=== PATIENT | male | born 1940 | race Caucasian/White ===

== ENCOUNTER 2017-01-13 19:41 | Inpatient (IN) | payer MEDICARE ==
[2017-01-13 20:01] LABS: VENOUS BLOOD GAS BASE EXCESS 2.2 mmol/L (-2.0-2.0); VENOUS BLOOD GAS HCO3 28.8 mmol/L (22.0-27.0)
[2017-01-13] MEDS ORDERED: ONDANSETRON 4 MG/2ML 2 ML VIAL ONE (20:05)
[2017-01-13 20:09] LABS: ABSOLUTE NEUTROPHIL COUNT 7.2 K/mm3 (1.8-7.7); BASO % 0.5 % (0.2-1.0); HEMATOCRIT 35.9 % (32.0-52.0); HEMOGLOBIN 12.2 gm/l (14.0-18.0); IMM NEUT # 0.1 K/mm3 (0-0.2); LYMPH # 0.1 (1.0-4.8); LYMPH % 1.4 % (15-45); MEAN CELL VOLUME 100.8 fl (80.0-94.0); MEAN CORPUSCULAR HEMOGLOBIN 34.3 pg (27.0-31.0); MEAN PLATELET VOLUME 10.2 fl (7.4-10.4); MONO # 0.6 (0.0-0.8); MONO % 7.7 % (4-12); NEUT % 89.4 % (43-75); PLATELET COUNT 226 K/mm3 (130-400); RED CELL DISTRIBUTION WIDTH 13.1 % (11.5-14.5)
[2017-01-13] MEDS ORDERED: ACETAMINOPHEN 500 MG TABLET ONE (20:12)
[2017-01-13] MEDS ORDERED: SODIUM CHLORIDE 0.9% 500 ML ONE (20:12)
[2017-01-13 20:34] LABS: ALB/GLOB RATIO 1.2 (>1.0); ALBUMIN 3.7 gm/dL (3.5-5.7); CALCIUM 9.3 mg/dL (8.6-10.3); MAGNESIUM 0.8 mg/dL (1.9-2.7)
[2017-01-13] MEDS ORDERED: Potassium Chloride ORAL SOLN 20 MEQ/15 ML UDCUP ONE (20:40)
[2017-01-13] MEDS ORDERED: Magnesium Oxide 400 MG TABLET ONE (20:40)
[2017-01-13] MEDS ORDERED: MAGNESIUM SULFATE 1 G/100 ML 100 ML IV ONE (20:40)
--- NOTE | 2017-01-13 20:53 | RAD ---
01/13/2017 8:49 PM CHEST-AP BEDSIDE History: Shortness of breath and hypoxemia. Comparison: 05/15/2016 Findings: Single AP view of the chest is obtained. The lungs demonstrate patchy airspace disease in the left midlung. Eventration of the right hemidiaphragm is again identified. EKG leads overlie the chest. The cardiomediastinal silhouette is unremarkable.. The osseous structures are intact.. Median sternotomy wires are present. IMPRESSION: Patchy airspace disease in the left midlung worrisome for pneumonia.
[2017-01-13] MEDS ORDERED: LIDOCAINE 2% UROJECT 10 ML ONE (20:59)
[2017-01-13] MEDS ORDERED: LEVOFLOXACIN 500 MG/D5W 100 ML 100 ML IV ONE (21:00)
[2017-01-13 21:07] LABS: D-DIMER 1.19 mg/L FEU (0.20-0.50); INR 1.15; PROTHROMBIN TIME 12.2 SECONDS (9.3-11.4)
[2017-01-13 21:41] LABS: URINE BILIRUBIN NEGATIVE (NEGATIVE); URINE BLOOD NEGATIVE (NEGATIVE); URINE GLUCOSE (UA) NEGATIVE (NEGATIVE); URINE LEUKOCYTE ESTERASE NEGATIVE (NEGATIVE); URINE NITRITE NEGATIVE (NEGATIVE); URINE PROTEIN NEGATIVE (NEGATIVE); URINE UROBILINOGEN NORMAL (0-1 mg/dl)
[2017-01-13 21:51] VITALS: BMI 32.1
[2017-01-13 21:54] LABS: URINE APPEARANCE CLEAR; URINE COLOR YELLOW
[2017-01-13] MEDS ORDERED: ONDANSETRON 4 MG/2ML 2 ML VIAL IV PRN (22:27)
[2017-01-13 22:48] LABS: TOTAL CELLS COUNTED 100
[2017-01-13 22:49] LABS: BAND 24 % (0-10); BASOPHIL 0 % (0-1); EOSINOPHIL 0 % (1-3); LYMPHOCYTE 9 % (15-45); METAMYELOCYTE 11 %; MONOCYTE 6 % (4-12); NEUTROPHILS 50 % (43-75); ORDER PATH REVIEW YES; PLATELET ESTIMATE NORMAL (NORMAL)
[2017-01-13] MEDS ORDERED: MAGNESIUM SULFATE 2 G/50 ML 2 G in Premix (Water) 50 ml 1 EACH IV ONE ×2 (23:00→23:30)
[2017-01-13] MEDS ORDERED: PUMP TUBING ONE (23:01)
[2017-01-13] MEDS ORDERED: SODIUM CHLORIDE 0.9% 100 ML IV ONE (23:01)
[2017-01-13] MEDS ORDERED: SODIUM CHLORIDE 0.9% 100 ML IV PRN (23:09)
[2017-01-13] MEDS ORDERED: MENTHOL/CETYLPYRD 1 EACH LOZENGE PO PRN (23:09)
[2017-01-13] MEDS ORDERED: BLISTEX LIPSTICK 1 EACH TP PRN (23:09)
[2017-01-13] MEDS ORDERED: MAGNESIUM HYDROXIDE 30 ML UDCUP PO PRN (23:09)
[2017-01-13] MEDS: Cefepime HCl 2 G in NS 0.9% (MINI-BAG PLUS) 50 ML IV SCH (23:14)
[2017-01-13] MEDS ORDERED: INSULIN GLARGINE (DOSE) 100 UNITS/ML UNIT SUB-Q SCH (23:15)
[2017-01-13] MEDS ORDERED: ENOXAPARIN SODIUM 40 MG/0.4 ML SYRINGE SUB-Q SCH (23:15)
[2017-01-13] MEDS ORDERED: FUROSEMIDE 100 MG/10 ML VIAL IV ONE (23:26)
[2017-01-13] MEDS: CARVEDILOL 6.25 MG TABLET PO SCH (23:52)
[2017-01-14] MEDS: COLCHICINE 0.6 MG TABLET PO SCH ×2 (00:12→09:01)
[2017-01-14] MEDS: ACYCLOVIR 400 MG TABLET PO SCH ×2 (00:17→09:01)
[2017-01-14] MEDS ORDERED: LOVASTATIN 20 MG TABLET PO SCH (00:30)
[2017-01-14] MEDS ORDERED: INSULIN ASPART (DOSE) 100 UNITS/1 ML SUB-Q PRN (00:30)
[2017-01-14] MEDS ORDERED: LATANOPROST 0.005% 50 GTTS/2.5 ML BOT SOLN.DROP OU SCH (00:30)
[2017-01-14] MEDS: LORAZEPAM 1 MG TABLET PO PRN ×2 (01:50→07:50)
[2017-01-14] MEDS: ACETAMINOPHEN 325 MG TABLET PO PRN ×2 (02:15→07:50)
[2017-01-14 06:07] LABS: ABSOLUTE NEUTROPHIL COUNT 1.7 K/mm3 (1.8-7.7); BASO % 0.9 % (0.2-1.0); HEMATOCRIT 34.5 % (32.0-52.0); HEMOGLOBIN 11.6 gm/l (14.0-18.0); IMM NEUT # 0.2 K/mm3 (0-0.2); LYMPH # 0.1 (1.0-4.8); LYMPH % 3.6 % (15-45); MEAN CELL VOLUME 100.6 fl (80.0-94.0); MEAN CORPUSCULAR HEMOGLOBIN 33.8 pg (27.0-31.0); MEAN CORPUSCULAR HGB CONC 33.6 g/dl (33.0-37.0); MEAN PLATELET VOLUME 10.4 fl (7.4-10.4); MONO # 0.2 (0.0-0.8); MONO % 6.8 % (4-12); NEUT % 78.7 % (43-75); PLATELET COUNT 185 K/mm3 (130-400)
[2017-01-14 06:20] LABS: CALCIUM 8.7 mg/dL (8.6-10.3); MAGNESIUM 1.5 mg/dL (1.9-2.7)
[2017-01-14] MEDS: Cefepime HCl 2 G in NS 0.9% (MINI-BAG PLUS) 50 ML IV SCH (07:21)
[2017-01-14 07:45] LABS: ATYPICAL LYMPHOCYTE 3 %; BAND 12 % (0-10); BASOPHIL 0 % (0-1); EOSINOPHIL 0 % (1-3); LYMPHOCYTE 17 % (15-45); METAMYELOCYTE 14 %; MONOCYTE 11 % (4-12); NEUTROPHILS 43 % (43-75); PLATELET ESTIMATE NORMAL (NORMAL); TOTAL CELLS COUNTED 100
[2017-01-14] MEDS ORDERED: SODIUM CHLORIDE 0.9% 500 ML IV SCH ×3 (08:11→11:30)
[2017-01-14] MEDS ORDERED: SODIUM CHLORIDE 0.9% 500 ML ONE (08:19)
[2017-01-14] MEDS ORDERED: POTASSIUM CHLORIDE 20 MEQ TAB.PRT.SR PO SCH (09:00)
[2017-01-14] MEDS ORDERED: ASPIRIN (ENTERIC COATED) 325 MG TABLET.EC PO SCH (09:00)
[2017-01-14] MEDS ORDERED: PANTOPRAZOLE 40 MG TABLET DR PO SCH (09:00)
[2017-01-14] MEDS ORDERED: FUROSEMIDE 40 MG TABLET PO SCH (09:00)
[2017-01-14] MEDS ORDERED: CITALOPRAM HYDROBROMIDE 10 MG TABLET PO SCH (09:00)
[2017-01-14] MEDS ORDERED: ALLOPURINOL 100 MG TABLET PO SCH (09:00)
[2017-01-14] MEDS: INSULIN ASPART (DOSE) 100 UNITS/1 ML SUB-Q SCH ×2 (09:01→17:02)
[2017-01-14] MEDS: CARVEDILOL 6.25 MG TABLET PO SCH (09:02)
--- NOTE | 2017-01-14 09:06 | HP ---
Kenji Collins [id number] : 1940 DATE OF ADMISSION: 01/13/2017 IDENTIFICATION: Mr. Collins is a 76-year-old followed by Dr. Abdi. CHIEF COMPLAINT: Shortness of breath. HISTORYO F PRESENT ILLNESS: Mr. 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 Notably, yesterday he was seen at Dr. Andrade's office for chemotherapy with rituximab, Benadryl, and prednisone for lymphoma. Today he woke up with some hoarseness and increased dyspnea. He felt tired. He has a home pulse ox and noted that his oxygen saturation was low in the 80's. He did not have any fever or chills, but has had nonproductive cough. He felt a cramp in the left side of his chest. Eventually his called Dr. Abdi who advised her to take him to the emergency room and then his dyspnea got even worse. Paramedics were called and placed him on BiPAP and brought him into [facility] Emergency Room. Workup shows atrial fibrillation with tachycardia, acute congestive heart failure, and acute left sided pneumonia. He was treated with levofloxacin in the emergency department and referred to the hospitalist service. He was still requiring BiPAP respiratory support in the emergency department. REVIEW OF SYSTEMS: HEENT: He denies faintness or lightheadedness. He has had hoarseness today. Respiratory: Cough, nonproductive, but increased dyspnea. Cardiac: Denies palpitations. He has had a left chest cramp. Gastrointestinal: He has had nausea and vomiting. Denies reflux. Has had some chronic diarrhea. No hematochezia or melena. Genitourinary: No symptoms. Musculoskeletal: Gout pains in his ankles and sciatica. Constitutional: He did not note fever or chills, but his thinks that he may have lost 7 pounds in the last 2 to 3 weeks. PAST MEDICAL HISTORY: 1. Waldenstrom macroglobulinemia diagnosed in June 2009. He was treated with Cytoxan and Rituxan in 2010. I believe he was in remission and then relapsed and is currently undergoing treatment again managed by Dr. Andrade. 2. 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 3. Paroxysmal atrial fibrillation. He and his did not seem aware that he has this condition, but we have EKG's from November 2011 and May 2016 showing previous episodes of atrial fibrillation. 4. Obstructive sleep apnea treated with CPAP and supplemental oxygen at night equating to chronic respiratory failure. 5. Diabetes mellitus type 2 dependent on [facility] insulin use. 6. 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 He has had episodes of acute renal failure as well. 7. Chronic diarrhea, which he relates to colchicine treatment. 8. Chronic anemia related to his lymphoma and chronic kidney disease. 9. Obesity with body mass index of 32.1. 10. Chronic depression and anxiety. 11. Alcoholism. He has been abstinent from alcohol since January 02, that is 11 days, but denies having withdraw symptoms. Prior to that he was drinking a pint a day of hard liquor. 12. Glaucoma. 13. Dyslipidemia. PAST SURGICAL HISTORY: 1. Pericardial window in November 2011. 2. Pericardiectomy in January 2012. 3. Cardiac ablation of his atrial fibrillation focus in 2011. 4. Bone marrow biopsy. 5. Colonoscopy in November 2002. 6. Bilateral cataract surgeries. 7. Both left and right heart catheterizations in 2011. ALLERGIES: No known medication allergies. HE DOES REPORT AN ALLERGY TO BRAZIL NUTS. MEDICATIONS: 1. Carvedilol 6.25 mg by mouth twice daily. 2. Furosemide 80 mg by mouth twice daily. 3. Restasis 1 drop in each eye twice daily. 4. Aspirin 325 mg by mouth daily. 5. Allopurinol 200 mg by mouth daily. 6. Potassium chloride 20 mEq by mouth daily. 7. Humalog sliding scale with meals. 8. Levemir insulin 25 units subcutaneously at bedtime. 9. Lorazepam 1 mg by mouth three times daily. 10. Lovastatin 10 mg by mouth nightly. 11. Xalatan eye drops one in each eye at bedtime. 12. Zovirax 800 mg by mouth twice daily that is preventative along with his chemotherapy treatment. 13. Citalopram 10 mg by mouth daily. 14. Vitamin D3 one daily. 15. Colchicine 0.6 mg by mouth twice daily. 16. Ibuprofen 600 mg by mouth three times daily. 17. Ondansetron as needed for nausea. 18. Currently receiving chemotherapy. The regimen includes rituximab, Benadryl, and prednisone and he did have that combination yesterday January 12. HABITS: Remote smoking history, but quit 50 years ago. Heavy alcohol use, quit 11 days ago. SOCIAL HISTORY: He is a retired pharmacist. Lives with his and pet cat in [place]. ADVANCE DIRECTIVE: Was discussed, he does not want to be intubated and placed on mechanical ventilation. He barely tolerates the BiPAP. He would like an attempt at cardiopulmonary resuscitation if there is a witnessed arrest, but only for 3 or 4 minutes and if there is an unwitnessed arrest he does not want CPR attempted. FAMILY HISTORY: Hypertension and stroke on his father side. His father also had lymphoma, but a different type than the patient's. PHYSICAL EXAMINATION: GENERAL: This is a diaphoretic elderly gentleman in moderate respiratory distress. VITAL SIGNS: Temperature 98 degrees Fahrenheit, pulse 115, blood pressure 115/74, respiratory rate 30, oxygen saturation low 80's on nasal cannula oxygen in the 96 to 98 range when he is wearing the BiPAP mask with 80% delivered oxygen. HEENT: Atraumatic. Pupils equal, round, and reactive status post cataract surgery. Extraocular muscles intact. Oropharynx is moist. NECK: No jugular venous distention or bruits appreciated. CHEST: Poor air movement. No wheezes, rhonchi, or crackles appreciated. HEART: Rapid and irregular. ABDOMEN: Soft, nontender, hypoactive bowel sounds. No organomegaly. EXTREMITIES: Decreased, but palpable dorsalis pedis pulses. No cyanosis, clubbing, or edema. NEUROLOGIC: Patient is alert and oriented. No focal deficits. LABORATORIES: White blood cell count 8.0, hemoglobin and hematocrit 12.2 and 35.9, platelets 226. Band neutrophils 24%. INR is 1.15. D-dimer 1.19. Venous blood gas pH 7.349, pCO2 53.5, pO2 26.9, bicarb 28.8, lactate 2.0. Sodium 137, potassium 3.5, chloride 97, CO2 28, BUN 38, creatinine 1.4 up from a baseline of 1.1, glucose 181, magnesium low at 0.8, troponin I 0.03. B-type natiuretic peptide 434. Urinalysis specific gravity of 1.010. Urine chemistries are negative. DIAGNOSTICS: Chest x-ray patchy airspace disease in the left mid lung worrisome for pneumonia, status post median sternotomy. EKG atrial fibrillation with tachycardia. ASSESSMENT AND PLAN: 1. Mr. Collins is a 76-year-old with an acute presumed bacterial pneumonia and severe sepsis. He has immune suppression with lymphoma and chemotherapy therefore, he will be treated with intravenous levofloxacin and cefepime. 2. Paroxysmal atrial fibrillation with tachycardia. This may be triggered by the acute pneumonia. Will try to control his rate with carvedilol. 3. Acute congestive heart failure, probably diastolic, related to pneumonia and tachycardia. Will place him on fluid restriction and provide additional dose of furosemide for diuresis tonight. Plan echocardiogram. 4. Acute on chronic respiratory failure both hypoxemic and hypercapnic. Continue respiratory support with BiPAP and supplemental oxygen as needed. 5. Acute kidney injury on chronic kidney disease stage II. This will need to be followed closely along with his fluid status. Avoid nephrotoxic medications. 6. Acute hypokalemia and hypomagnesemia. We will replace both and follow. 7. Diabetes mellitus type 2 insulin dependent. Treat with basal and bolus insulin and check blood sugars before meals and bedtime. 8. Chronic lymphoma on chemotherapy as he just received treatment yesterday we may anticipate a decrease in his white blood cell count and ability to fight infection over the next week. 9. Chronic anemia appears to be at baseline. 10. Chronic depression and anxiety. Continue usual treatment. 11. Alcoholism in brief recovery. Social work consult to encourage continued abstinence. 12. Obesity complicates care for his pneumonia, heart failure, and diabetes as well as his sleep apnea. 13. Code status is do not intubate and cardiopulmonary resuscitation for witnessed arrest only. 14. Venous thromboembolism prophylaxis with enoxaparin. Consider [facility] warfarin treatment if atrial fibrillation is persistent. JOB: [id number]
[2017-01-14] MEDS ORDERED: LORAZEPAM 2 MG/ML 1ML SDV IV PRN ×2 (10:23→12:31)
[2017-01-14] MEDS ORDERED: SODIUM CHLORIDE 0.9% 1,000 ML IV SCH (10:30)
[2017-01-14] MEDS ORDERED: IV START KIT ONE (10:35)
[2017-01-14 10:46] LABS: ARTERIAL BLOOD GAS pH 7.383 (7.350-7.450)
[2017-01-14 10:47] LABS: ARTERIAL BLOOD GAS BASE EXCESS -5.4 mmol/L (-2.0-2.0); ARTERIAL BLOOD GAS HCO3 18.7 mmol/L (22.0-28.0); ARTERIAL BLOOD GAS PCO2 32.2 mmHg (35.0-45.0); ARTERIAL BLOOD GAS PO2 64.3 mmHg (80.0-90.0)
[2017-01-14] MEDS: NOREPINEPHRINE BITARTRATE 4 MG in D5W 246 ML IV PRN ×2 (10:49→14:10)
--- NOTE | 2017-01-14 10:53 | RAD ---
01/14/2017 10:47 AM CHEST-AP BEDSIDE History: Hypoxia Comparison: Films same back to 08/17/2015 Findings: Single AP view of the chest is obtained. The lungs demonstrate worsening of the patient's left midlung airspace opacity, now extending into the upper and lower lobe distribution. There is streaky linear airspace disease at the left base with some obscuration of the hemidiaphragm worrisome for underlying effusion. Possible patchy airspace disease is noted involving the right middle and lower lobe. The cardiomediastinal silhouette is unremarkable.. The osseous structures are intact.. Eventration of the right hemidiaphragm is again noted. EKG leads overlie the chest. Median sternotomy wires are noted. IMPRESSION: Worsening of the patient's left-sided airspace disease with probable new effusion. Right-sided airspace disease is also present. Findings are worrisome for multifocal pneumonia.
[2017-01-14] MEDS ORDERED: PUMP TUBING ONE ×3 (11:30→13:50)
[2017-01-14] MEDS: SODIUM CHLORIDE 0.9% 1,000 ML IV SCH ×2 (12:38→14:21)
[2017-01-14] MEDS ORDERED: PHENYLEPHRINE 10 MG/1 ML (1%) VIAL ONE (13:17)
[2017-01-14] MEDS ORDERED: SODIUM CHLORIDE 0.9% IV PRN (13:23)
[2017-01-14] MEDS ORDERED: VASOPRESSIN IV PRN (13:23)
[2017-01-14] MEDS ORDERED: PROPOFOL 100 ML IV ONE (13:30)
[2017-01-14] MEDS ORDERED: PROPOFOL 200 MG/20 ML VIAL IV ONE (13:34)
[2017-01-14] MEDS ORDERED: ETOMIDATE IV ONE (13:34)
[2017-01-14 13:38] LABS: CALCIUM 7.8 mg/dL (8.6-10.3)
[2017-01-14] MEDS ORDERED: PROPOFOL 1000 MG/100 ML IV PRN (13:44)
[2017-01-14] MEDS ORDERED: PROPOFOL 100 ML IV PRN (13:50)
--- NOTE | 2017-01-14 14:09 | RAD ---
01/14/2017 2:01 PM CHEST-AP BEDSIDE History: Worsening hypoxia, endotracheal tube placement Comparison: Plain films earlier on the same day Findings: Single AP view of the chest is obtained. The lungs demonstrate worsening of the airspace disease within the left mid, right mid and lower lobes. Bilateral effusions are now present with associated compressive atelectasis. Underlying pneumonia cannot be excluded. Eventration of the right hemidiaphragm as seen on prior study is obscured. The cardiomediastinal silhouette is unremarkable.. The osseous structures are intact.. Median sternotomy wires are present. Endotracheal tube terminates approximately 3.3 cm above the fernanda. IMPRESSION: Endotracheal tube as above. Worsening of the patient's bilateral airspace disease with bilateral effusions as above. Findings were called to Dr. Hung at approximately 1405 hours on 01/13/2017.
[2017-01-14] MEDS ORDERED: NOREPINEPHRINE BITARTRATE 8 MG in D5W 500 ML IV PRN (14:12)
[2017-01-14] MEDS: VANCOMYCIN HCL 2 G in SODIUM CHLORIDE 0.9% 500 ML IV SCH ×2 (14:21→17:02)
--- NOTE | 2017-01-14 14:52 | PDOC43 ---
- Subjective Chief Complaint: SOB Still more SOB than nl. Frequently asking for mask off but overall olerating Bipap. Persistent fever above 101 since last night. Subjective: Reports Fever, Reports Chills, Denies Chest Pain, Denies Abdominal Pain, Denies Nausea, Denies Vomiting - Objective Vital Signs Temperature 101.1 F 01/14/17 11:22 Pulse Rate 93 01/14/17 11:30 Respiratory Rate 30 01/14/17 11:30 Blood Pressure 86/32 01/14/17 11:30 O2 Saturation by Pulse Oximetry 95 01/14/17 11:30 Oxygen Delivery Method Bi-PAP Oxygen Flow Rate 12 Intake and Output 01/13/17 01/14/17 01/15/17 06:59 06:59 06:59 Intake Total 865 400 Output Total 480 85 Balance 385 315 General: Alert, Oriented x3, Cooperative, No Acute Distress HEENT: Atraumatic Lungs: Clear to Auscultation Bilaterally, Other (Distant sounds all fileds B.) Cardiovascular: Irregular Abdomen: Soft, Normal Bowel Sounds, Non-Distended, No Tenderness Extremities: No Edema Peripheral Pulses: Carotid (R): 1+, Radial (L): 1+, Dorsalis Pedis (L): 1+, Dorsalis Pedis (R): 1+ Skin: Other (Pale. Clammy.) Laboratory 01/14/17 05:30 01/14/17 05:30 Current Medications: Current meds reviewed in EMR. - Problems: Assessment/Plan (1) Pneumonia Qualifiers: Pneumonia type: due to unspecified organism Laterality: bilateral Status: AcuteAssessment/Plan: Complicated by underlying lymphoma, recent chemotx, underlying elevated R diaphragm d/t phrenic nerve injury, and underlying ANDREW requiring CPAP and O2 at baseline. With associated septic shock- see below. Tolerating Bipap. On cefepime /levaquin/vanco, and acyclovir. Cx pending. Pt initially stated DNI, but now states intubation OK if necessary. Will d/w pulmonology/critical care. May need transfer. (2) Sepsis Qualifiers: Sepsis type: sepsis due to unspecified organism Qualifier Code: (A41.9 ) Sepsis, unspecified organism Status: AcuteAssessment/Plan: Overnight BP's dropped. Now clinical picture c/w septic shock. Received IVF boluses this AM with transient effect. Now on more aggressive IVF and norepi gtt. Con't aggressive IVF/pressors. Stress dose steroids. May need transfer to tertiary hospital. (3) ELI (acute kidney injury) Status: AcuteAssessment/Plan: Associated with above in context of underlying CKD stage 3. Care as above. Avoid nephrotoxic agents. (4) CHF (congestive heart failure) Qualifiers: Congestive heart failure type: diastolic Congestive heart failure chronicity: unspecified congestive heart failure chronicity Qualifier Code: (I50.30) Unspecified diastolic (congestive) heart failure Status: Acute Assessment/Plan: At admit clinical picture appeared c/w acute exacerbation of chronic, but in retrospect most likely not acute CHF. As above now clearly in septic shock. Will attempt to get echo if able in timely fashion. (5) Atrial fibrillation Qualifiers: Atrial fibrillation type: chronic Qualifier Code: (I48.2) Chronic atrial fibrillation Status: ChronicAssessment/Plan: Chronic. Rate controlled. (6) Lymphoma Qualifiers: Non-Hodgkin lymphoma type: unspecified type Lymphoma site: unspecified region Status: ChronicAssessment/Plan: Known underlying Waldenstrom Macroglobinulemia dx'ed in 2008. Now on maintenance tx with Rituxan. Last tx on Friday 01/12. Complicating above. (7) DM II (diabetes mellitus, type II), controlled Qualifiers: Diabetes mellitus complication status: with unspecified complications Status: ChronicAssessment/Plan: Stable. Con't basal/bolus. (8) ANDREW (obstructive sleep apnea) Status: ChronicAssessment/Plan: Complicating above. (9) Alcoholism Status: ChronicAssessment/Plan: In remission x 2 weeks. No hx of withdrawal. Ativan prn anxiety. (10) Obesity (BMI 30.0-34.9) Status: ChronicAssessment/Plan: Complicating above. VTE Prophylaxis: Lovenox. Disposition: Unknown.
[2017-01-14 16:39] VITALS: BP 93/64
[2017-01-14] MEDS ORDERED: HYDROCORTISONE SOD SUCC 100 MG VIAL IV SCH (17:00)
[2017-01-14] MEDS ORDERED: ACYCLOVIR SODIUM 500 MG in SODIUM CHLORIDE 0.9% 100 ML IV SCH ×2 (17:00→21:00)
[2017-01-14] MEDS ORDERED: Cefepime HCl 2 G in SODIUM CHLORIDE 0.9% 50 ML IV SCH (19:00)
--- NOTE | 2017-01-15 10:40 | DS ---
Kenji Collins ADMIT DATE: 01/13/2017 DATE OF TRANSFER: 01/14/2017 ADMIT DIAGNOSES: 1. Community acquired pneumonia presumed bacterial with severe sepsis in the context of immune suppression with underlying lymphoma and continued chemotherapy. 2. Paroxysmal atrial fibrillation with tachycardia. 3. Symptoms consistent with acute congestive heart failure secondary to above related to rate. 4. Acute on chronic respiratory failure with hypoxemic and hypercapnic with known underlying obstructive sleep apnea on CPAP at baseline. 5. Acute kidney injury in the context of chronic kidney disease stage II. 6. Diabetes mellitus at baseline. 7. Chronic lymphoma (Waldenstrom macroglobulinemia) on continued maintenance therapy with Rituxan, last treatment was on 01/12/2017. 8. Chronic anemia. 9. Alcoholism in recovery times two weeks. DISCHARGE DIAGNOSES: 1. Community acquired pneumonia presumed bacterial with associated septic shock. 2. Immune compromised status secondary to underlying lymphoma and chemotherapy. 3. Acute kidney injury in the context of chronic kidney disease stage II. 4. No evidence of congestive heart failure. 5. Atrial fibrillation, chronic, rate controlled. 6. Underlying lymphoma as noted above. 7. Diabetes mellitus type 2 at baseline. 8. Obstructive sleep apnea complicating above. 9. Alcoholism in remission times two weeks. ADMIT HISTORY AND PHYSICAL: Please see Dr. Olvera's note for details. Briefly, Mr. Collins is a 76-year-old male with a history of underlying Waldenstrom macroglobulinemia lymphoma. He received his usually maintenance Rituxan therapy on 01/12/2017, then on the follow day, the day of admission he had onset of shortness of breath. He was brought to the emergency room and found to have evidence of a left sided pneumonia consistent with a bacterial pneumonia. Given his immune compromise status he was admitted to the hospitalist service and started on cefepime and Levaquin. He was also noted to be quite tachycardic with atrial fibrillation with rapid ventricular rate. There was concern he may have actual fluid overload as he had some wheezing and borderline elevated BNP. HOSPITAL COURSE: He was admitted to [facility] due to the concern about fluid overload. He was actually initially treated with Lasix, however, over the course of the night he developed fever, developed hypotension, and on the morning of transfer he had clearly developed septic shock. He was treated with aggressive IV fluids subsequently, adding norepinephrine and Vasopressin drips. He was maintained on BiPAP with maximum oxygenation possible. His antibiotics were revised to cefepime, Levaquin, vancomycin, and acyclovir. He was started on a stress dose steroids. It became clear that he was deteriorating even with the above interventions. Goals of care discussion were had with both the patient and his and he revised his code status from do not intubated over to full code. I then discussed his case with Dr. Tafoya over at [facility] and he recommended transfer to a tertiary care center with intubation done prior to transfer. This was communicated with the patient and his and they agreed understanding the risks of intubation (i.e. worsened hypotension as well as the risk of transfer). Nurse superintendent institution were contacted and performed a rapid sequence intubation, please see their notes for details. He did have an exacerbation of his hypotension which we treated again with fluid boluses and adding vasopressin drip to his norepinephrine drip. At the time of transfer he remained quite ill. He was intubated, sedated with low dose propofol and on both norepinephrine and vasopressin drips. He had received stress dose steroids as well as cefepime, acyclovir, Levaquin. He did not receive vancomycin prior to transfer due to time issues. We were unable to place a central line and all the above were administered peripherally. It was felt that given his fragile state it was best to expedite the transfer instead of delaying it further to place a central line. At that time of his transfer his condition was considered dire. It was felt that he was very likely not to survive this episode. This was communicated to the patient's and family and they understood with no further questions. Further care is per Dr. Tafoya at [facility]. JOB: [id number]
== END 2017-01-14 13:35 | disposition short-term general hospital (02) | DRG 871 ==
LOC: ED 19:41 → ICU 21:01
PROVIDERS: ADMIT Family Medicine; ATTEND Family Medicine
DX: A41.89 Other specified sepsis (principal); J15.9 Unspecified bacterial pneumonia; I50.31 Acute diastolic (congestive) heart failure; J96.22 Acute and chronic respiratory failure with hypercapnia; J96.21 Acute and chronic respiratory failure with hypoxia; N17.9 Acute kidney failure, unspecified; C85.90 Non-Hodgkin lymphoma, unspecified, unspecified site; R65.20 Severe sepsis without septic shock; I48.0 Paroxysmal atrial fibrillation; N18.2 Chronic kidney disease, stage 2 (mild); E87.6 Hypokalemia; E83.42 Hypomagnesemia; E11.22 Type 2 diabetes mellitus with diabetic chronic kidney disease; Z79.4 Long term (current) use of insulin; D63.1 Anemia in chronic kidney disease; F10.21 Alcohol dependence, in remission; G47.30 Sleep apnea, unspecified; E66.9 Obesity, unspecified; F41.8 Other specified anxiety disorders